=== PATIENT | female | born 1985 | race African-American/Black ===

== ENCOUNTER 2025-05-01 12:22 | Inpatient (IN) | payer SELFPAY ==
[~2025-05-01] VITALS: Ht 177.8 cm; Wt 68.2 kg
[2025-05-01 12:25] VITALS: O2SAT 100
[2025-05-01] MEDS: LORAZEPAM 2MG/ML UD SYRINGE IV SCH (14:05)
[2025-05-01 16:25] LABS: BASOPHILS % 0.5 % (0.0-2.0); EOSINOPHILS % 0.1 % (0.0-5.0); HEMATOCRIT. 35.1 % (36.0-48.0); HEMOGLOBIN. 12.1 g/dL (12.0-16.0); LYMPHOCYTES % 23.7 % (20.0-50.0); MEAN PLATELET VOLUME 9.4 fl (7.4-10.4); MONOCYTES % 5.1 % (2.0-8.0); NEUTROPHILS % 70.6 % (40.0-76.0); PLATELET 187 x1000/uL (130-400); RED BLOOD CELL COUNT 3.61 mill/uL (4.2-5.4); RED CELL DISTRIBUTION WIDTH 11.9 % (11.6-14.6)
[2025-05-01 16:40] LABS: CREATININE 1.0 mg/dL (0.6-1.0); UREA NITROGEN BLOOD 10 mg/dL (9-23)
[2025-05-01 16:41] LABS: INR 1.1; TROPONIN I HIGH SENSITIVITY 7 ng/L (3.0-34)
[2025-05-01 16:42] LABS: ASPARTATE AMINOTRANSFERASE 14 IU/L (<34); BILIRUBIN DIRECT 0.3 mg/dL (<=3.0); BILIRUBIN TOTAL 1.0 mg/dL (0.1-1.0); PROTEIN TOTAL 6.4 g/dL (6.0-8.3)
[2025-05-01] MEDS: IOHEXOL-350 100 ML BOTTLE ONE (16:55)
[2025-05-01 20:27] LABS: *AMPHETAMINES SCREEN URINE NEGATIVE (NEGATIVE); *BARBITURATES SCREEN URINE NEGATIVE (NEGATIVE); *BENZODIAZEPINES SCREEN URINE NEGATIVE (NEGATIVE); *COCAINE SCREEN URINE NEGATIVE (NEGATIVE); CANNABINOID URINE SCREEN PRESUMPTIVE POSITIVE (NEGATIVE); ECSTASY MDMA SCREEN URINE NEGATIVE (NEGATIVE); METHADONE URINE SCREEN NEGATIVE (NEGATIVE); OPIATES URINE SCREEN NEGATIVE (NEGATIVE); PHENCYCLIDINE URINE SCREEN NEGATIVE (NEGATIVE)
[2025-05-01 20:33] LABS: CLARITY URINE CLEAR (CLEAR); COLOR URINE YELLOW (YELLOW); GLUCOSE URINE NEGATIVE (NEGATIVE); KETONES URINE NEGATIVE (NEGATIVE); LEUKOCYTE ESTERASE URINE NEGATIVE (NEGATIVE); NITRITE URINE NEGATIVE (NEGATIVE); OCCULT BLOOD URINE 2+ (NEGATIVE); PH URINE 7.0 (4.5-8.0); PROTEIN URINE NEGATIVE (NEGATIVE); SPECIFIC GRAVITY URINE 1.072 (1.005-1.030); UROBILINOGEN URINE 1.0 E.U./dL (0.2-1.0)
[2025-05-01 20:45] LABS: BACTERIA URINE TRACE; SQUAMOUS EPITHELIAL CELL URINE FEW /lpf (RARE/1+); WBC URINE 0-2 /hpf (0-2)
[2025-05-01] MEDS ORDERED: IPRATROPIUM/ALBUTEROL 0.5-3(2.5)MG/3ML NEB HHN PRN (21:00)
[2025-05-01] MEDS ORDERED: ONDANSETRON HCL 4MG/2ML INJ IV PRN (21:00)
[2025-05-01] MEDS ORDERED: CLONIDINE 0.1MG TABLET PO PRN (21:00)
[2025-05-01] MEDS ORDERED: ACETAMINOPHEN 325MG TABLET PO PRN (21:00)
[2025-05-01] MEDS ORDERED: LORAZEPAM 0.5MG TABLET PO PRN (21:00)
[2025-05-01] MEDS ORDERED: DEXT 5%/0.45% NACL 1000ML 1,000 ML IV SCH (21:00)
[2025-05-01 22:00] VITALS: BP 127/82; PULSE 60; RESP 18; TEMP 36.418
[2025-05-01] MEDS: SODIUM CHLORIDE 0.9% 1,000 ML IV ONE (23:44)
[2025-05-02] VITALS: BP 113/73; PULSE 50; RESP 18; TEMP 36.3; O2SAT 99
[2025-05-02] MEDS ORDERED: ASPI-1497 MT (00:07)
[2025-05-02 04:00] VITALS: BP 114/72; PULSE 52; RESP 18; TEMP 36.3; O2SAT 98
[2025-05-02 08:00] VITALS: BP 128/75; PULSE 56; RESP 18; TEMP 36.7; O2SAT 97
[2025-05-02] MEDS: FOLIC ACID 1MG TABLET PO SCH (08:14)
[2025-05-02] MEDS: PANTOPRAZOLE 40MG DR TABLET PO SCH (08:14)
[2025-05-02] MEDS: ASPIRIN 81MG EC TABLET PO SCH (08:14)
[2025-05-02] MEDS: MULTIVITAMINS,THER W-MINERALS TABLET PO SCH (08:14)
[2025-05-02] MEDS: THIAMINE HCL 100MG TABLET PO SCH (08:14)
[2025-05-02 09:57] LABS: BASOPHILS % 0.4 % (0.0-2.0); EOSINOPHILS % 0.9 % (0.0-5.0); HEMATOCRIT. 36.1 % (36.0-48.0); HEMOGLOBIN. 12.4 g/dL (12.0-16.0); LYMPHOCYTES % 32.1 % (20.0-50.0); MEAN PLATELET VOLUME 9.9 fl (7.4-10.4); MONOCYTES % 5.7 % (2.0-8.0); NEUTROPHILS % 60.9 % (40.0-76.0); PLATELET 167 x1000/uL (130-400); RED BLOOD CELL COUNT 3.66 mill/uL (4.2-5.4); RED CELL DISTRIBUTION WIDTH 11.9 % (11.6-14.6)
[2025-05-02 10:04] LABS: INR 1.1
[2025-05-02 10:23] LABS: TRIGLYCERIDE 56 mg/dL (0-150)
[2025-05-02 10:24] LABS: TROPONIN I HIGH SENSITIVITY 6 ng/L (3.0-34)
[2025-05-02 10:25] LABS: CREATININE 0.9 mg/dL (0.6-1.0); UREA NITROGEN BLOOD 8 mg/dL (9-23)
[2025-05-02 10:26] LABS: LDL CHOLESTEROL 65 mg/dL (5-100)
[2025-05-02 10:27] LABS: ASPARTATE AMINOTRANSFERASE 14 IU/L (<34); BILIRUBIN DIRECT 0.5 mg/dL (<=3.0); BILIRUBIN TOTAL 1.7 mg/dL (0.1-1.0); PROTEIN TOTAL 6.4 g/dL (6.0-8.3); T4 FREE 0.94 ng/dL (0.89-1.76)
[2025-05-02 10:50] LABS: VITAMIN B12 SERUM 538 pg/mL (211-911)
[2025-05-02 12:00] VITALS: BP 104/76; PULSE 61; RESP 18; TEMP 36.6; O2SAT 100
[2025-05-02 16:00] VITALS: BP 114/82; PULSE 58; RESP 20; TEMP 36.5; O2SAT 100
[2025-05-02] MEDS ORDERED: DEXTROSE 50% WATER 50ML SYRINGE IV PRN (19:30)
[2025-05-02 20:00] VITALS: BP 121/77; PULSE 50; RESP 20; TEMP 36.8; O2SAT 98
[2025-05-02] MEDS: ATORVASTATIN CALCIUM 40MG TABLET PO SCH (20:38)
[2025-05-02] MEDS: BLOOD SUGAR DIAGNOSTIC STRIP TEST SCH (20:38)
[2025-05-02] MEDS: INSULIN LISPRO 100 UNITS/ML SUBCUT SCH (20:38)
[2025-05-02] MEDS: ACETAMINOPHEN 325MG TABLET PO PRN (20:39)
[2025-05-03] VITALS: BP 106/66; PULSE 51; RESP 20; TEMP 36.7; O2SAT 100
[2025-05-03 04:00] VITALS: BP 121/84; PULSE 47; RESP 20; TEMP 36.8; O2SAT 99
[2025-05-03 08:00] VITALS: BP 117/74; PULSE 50; RESP 18; TEMP 36.2; O2SAT 100
[2025-05-03 12:00] VITALS: BP 116/72; PULSE 53; RESP 20; TEMP 36.3; O2SAT 100
[2025-05-03] MEDS ORDERED: CLOPIDOGREL 75MG TABLET PO SCH (15:15)
[2025-05-03 16:00] VITALS: BP 120/78; PULSE 60; RESP 18; TEMP 36.3; O2SAT 100
[2025-05-03 20:00] VITALS: BP_SYST 107; BP_SYST 115; BP_SYST 118; BP_DIAS 73; BP_DIAS 75; PULSE 55; RESP 20; TEMP 36.7; O2SAT 99
[2025-05-03] MEDS: ATORVASTATIN CALCIUM 40MG TABLET PO SCH (20:16)
[2025-05-03] MEDS: CLOPIDOGREL 75MG TABLET PO SCH (20:16)
[2025-05-04] VITALS (7 sets, daily range): BP systolic 99–127; BP diastolic 66–91; PULSE 51–89; RESP 18–19; TEMP 36.4–36.7; O2SAT 98–100
[2025-05-04] MEDS: CLOPIDOGREL 75MG TABLET PO SCH (08:46)
[2025-05-05] VITALS: BP 118/60; PULSE 60; RESP 18; TEMP 36.4; O2SAT 100
[2025-05-05 04:00] VITALS: BP 103/61; PULSE 53; RESP 18; TEMP 36.4; O2SAT 100
[2025-05-05 08:00] VITALS: BP 111/65; PULSE 56; RESP 18; TEMP 36.5; O2SAT 99
[2025-05-05 12:00] VITALS: BP 114/60; PULSE 61; RESP 18; TEMP 36.2; O2SAT 98
[2025-05-05 13:08] LABS: ANTI-CARDIOLIPIN AB IGG < 9 GPL U/mL (0-14); ANTI-CARDIOLIPIN AB IGM < 9 MPL U/mL (0-12)
[2025-05-05 16:00] VITALS: BP 110/66; PULSE 61; RESP 18; TEMP 36.4; O2SAT 100
[2025-05-05] MEDS ORDERED: LIP40 PO (17:27)
[2025-05-05] MEDS ORDERED: CLOP-31 PO (17:27)
[2025-05-05] MEDS ORDERED: ASPI-1497 MT (17:27)
[2025-05-05 17:57] VITALS: BP 110/65; PULSE 62; RESP 16; TEMP 97.6
== END 2025-05-05 19:00 | disposition home or self-care (01) | DRG 58 ==
LOC: ER 12:22 → 7WST 17:21 → EDBEDREQ 17:28 → EDBEDREQTM 17:28 → ENRESERV 20:45
PROVIDERS: ADMIT Internal Medicine; ATTEND Internal Medicine
DX: G81.94 Hemiplegia, unspecified affecting left nondominant side (principal); G92.8 Other toxic encephalopathy; I21.A1 Myocardial infarction type 2; D68.59 Other primary thrombophilia; E83.51 Hypocalcemia; I50.9 Heart failure, unspecified; I69.320 Aphasia following cerebral infarction; Z86.718 Personal history of other venous thrombosis and embolism; Z95.828 Presence of other vascular implants and grafts; R00.1 Bradycardia, unspecified; Z79.82 Long term (current) use of aspirin; Z80.41 Family history of malignant neoplasm of ovary
CPT/HCPCS: 36415; 70496; 70498; 70551; 71045; 80048; 80061; 80076; 80305; 80320; 81003; 82306; 82550; 82607; 82962; 83036; 84439; 84443; 84481; 84484; 85025; 86147; 92610; 93005; 93970; 97112; 97116; 97162; 97166; 97530; 97535; 99291; A4606; J2060; Q9967; G0480